=== PATIENT | male | born 1955 | race Caucasian/White ===

== ENCOUNTER 2019-04-13 11:32 | Inpatient (IN) ==
[2019-04-13] MEDS ORDERED: 0.9 % Sodium Chloride 1,000 ML IVC ONE (12:13)
[2019-04-13 12:27] LABS: Basophils % 0.3 %; Hematocrit 43.5 % (37.5-50.1); Hemoglobin 14.3 g/dL (12.9-16.9); Immature Granulocytes % 0.3 % (0-4); Lymphocytes # 1.1 K/mcL (0.6-4.6); Lymphocytes % 9.8 %; Mean Corpuscular HGB Conc 32.9 g/dL (31.6-35.5); Mean Corpuscular Hemoglobin 31.7 pg (28.0-33.3); Mean Corpuscular Volume 96.5 fL (83.0-100.0); Mean Platelet Volume 12.3 fL (9.4-12.4); Monocytes # 0.9 K/mcL (0.0-1.3); Neutrophils # 9.3 K/mcL (1.6-8.9); Platelet Count 176 K/mcL (140-400); Red Blood Count 4.51 M/mcL (4.19-5.50); Red Cell Distribution Width 14.6 % (11.5-14.5); Segmented Neutrophils % 81.6 %; White Blood Count 11.4 K/mcL (4.3-11.1)
[2019-04-13 12:43] LABS: INR 1.5; Prothrombin Time 16.8 Seconds (9.4-12.1)
[2019-04-13] MEDS ORDERED: Isovue-370 500 ML BOTTLE IVP ONE (12:56)
[2019-04-13] MEDS ORDERED: Furosemide 40 MG/4 ML VIAL IVP ONE (13:06)
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
[2019-04-13] MEDS ORDERED: 0.9 % Sodium Chloride 1,000 ML IVC SCH (13:15)
[2019-04-13 13:51] LABS: ABG Base Excess 1 mEq/L (-2 to 3); ABG HCO3 28 mEq/L (21-27); ABG Oxygen Saturation 96 % (95-98); ABG PCO2 53 mmHg (35-45); ABG PH 7.33 pH Units (7.32-7.45); ABG PO2 86 mmHg (85-104); ABG TCO2 30 mEq/L (20-26)
[2019-04-13 14:20] LABS: Alanine Aminotransferase 37 Units/L (7-52); Albumin 4.2 g/dL (3.5-5.7); Albumin/Globulin Ratio 1.4 (1.1-2.2); Alkaline Phosphatase 119 Units/L (34-104); Aspartate Amino Transferase 38 Units/L (13-39); BUN/Creatinine Ratio 38 (6-26); Bilirubin,Direct 0.5 mg/dL (0.0-0.2); Bilirubin,Indirect 1.2 mg/dL (0.0-1.2); Bilirubin,Total 1.7 mg/dL (0.3-1.0); Blood Urea Nitrogen 35 mg/dL (8-23); Calcium 9.6 mg/dL (8.6-10.3); Carbon Dioxide 29 mEq/L (23-29); Chloride 101 mEq/L (98-107); Globulin 2.9 g/dL (2.4-3.5); Glucose 167 mg/dL (70-105); Magnesium 2.1 mg/dL (1.6-2.6); Osmolality,Calculated 298 (280-300); Phosphorous 5.1 mg/dL (2.7-4.5); Potassium 4.8 mEq/L (3.5-5.1); Sodium 138 mEq/L (136-145); Total Protein 7.1 g/dL (6.4-8.9); eGFR For African Americans > 60 (> 60); eGFR For Non-African Americans > 60 (> 60)
[2019-04-13 14:31] LABS: Troponin I 0.03 ng/mL (< 0.04)
[2019-04-13 15:53] LABS: Bilirubin,Urine Negative (Negative); Blood,Urine Negative (Negative); Clarity,Urine Clear (Clear); Color,Urine Yellow (Yellow); Glucose,Urine (UA) Normal (Normal); Ketones,Urine Negative (Negative); Leukocyte Esterase,Urine Trace (Negative); Nitrite,Urine Negative (Negative); PH,Urine 5.5 pH Units (5.0-8.0); Protein,Urine 30 mg/dL (Neg-Trace); Specific Gravity,Urine 1.016 (1.010-1.025); Urobilinogen,Urine Normal (Normal)
[2019-04-13 15:55] LABS: Bacteria,Urine None Seen per hpf (None-Few); Hyaline Casts,Urine None Seen per lpf (None-Few); RBC,Urine 0-3 per hpf (0-3); Squamous Epithelial Cell,Urine Many per lpf (None-Few)
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
[2019-04-13] MEDS ORDERED: Naloxone 0.4 MG/ML INJ IVP PRN (17:02)
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
[2019-04-13] MEDS ORDERED: D5% in Water 1,000 ML IVC PRN (17:37)
[2019-04-13] MEDS ORDERED: *HR* Dextrose 50 % in Water (Syg) 50 ML SYRINGE IVP PRN (17:37)
[2019-04-13] MEDS ORDERED: Dextrose Gel 15 GM/37.5 ML TUBE PO PRN ×2 (17:37)
[2019-04-13 18:30] LABS: Estimated Average Glucose 174 mg/dl
[2019-04-13] MEDS ORDERED: Lactulose Oral Soln 20 GM/30 ML UDC PO ONE (20:24)
[2019-04-13] MEDS ORDERED: *HR* Metoprolol 5 MG/5 ML VIAL IVP PRN (20:24)
[2019-04-13] MEDS: Insulin LISPRO 300 UNITS/3 ML VIAL SQ SCH (20:27)
[2019-04-14 05:15] LABS: Basophils % 0.3 %; Eosinophils % 0.3 %; Hematocrit 44.2 % (37.5-50.1); Hemoglobin 14.2 g/dL (12.9-16.9); Immature Granulocytes % 0.4 % (0-4); Lymphocytes # 1.1 K/mcL (0.6-4.6); Lymphocytes % 10.9 %; Mean Corpuscular HGB Conc 32.1 g/dL (31.6-35.5); Mean Corpuscular Hemoglobin 31.8 pg (28.0-33.3); Mean Corpuscular Volume 98.9 fL (83.0-100.0); Monocytes % 10.2 %; Platelet Count 173 K/mcL (140-400); Red Blood Count 4.47 M/mcL (4.19-5.50); Red Cell Distribution Width 14.6 % (11.5-14.5); Segmented Neutrophils % 77.9 %; White Blood Count 10.2 K/mcL (4.3-11.1)
[2019-04-14 05:33] LABS: BUN/Creatinine Ratio 34 (6-26); Blood Urea Nitrogen 36 mg/dL (8-23); Calcium 9.1 mg/dL (8.6-10.3); Carbon Dioxide 31 mEq/L (23-29); Chloride 100 mEq/L (98-107); Glucose 153 mg/dL (70-105); Magnesium 2.2 mg/dL (1.6-2.6); Osmolality,Calculated 297 (280-300); Potassium 4.4 mEq/L (3.5-5.1); Sodium 138 mEq/L (136-145); eGFR For African Americans > 60 (> 60); eGFR For Non-African Americans > 60 (> 60)
[2019-04-14 05:35] LABS: Albumin 4.3 g/dL (3.5-5.7); Albumin/Globulin Ratio 1.5 (1.1-2.2); Bilirubin,Direct 0.5 mg/dL (0.0-0.2); Bilirubin,Indirect 0.8 mg/dL (0.0-1.2); Bilirubin,Total 1.3 mg/dL (0.3-1.0); Globulin 2.8 g/dL (2.4-3.5); Total Protein 7.1 g/dL (6.4-8.9)
[2019-04-14 08:26] LABS: Creatine Kinase 106 Units/L (30-223)
[2019-04-14] MEDS: Apixaban 5 MG TABLET PO SCH (08:48)
[2019-04-14] MEDS: Insulin LISPRO 300 UNITS/3 ML VIAL SQ SCH ×3 (08:48→17:50)
[2019-04-14] MEDS ORDERED: Furosemide 40 MG/4 ML VIAL IVP SCH (09:00)
[2019-04-14] MEDS: Lactulose Oral Soln 20 GM/30 ML UDC PO SCH ×2 (12:04→20:22)
--- NOTE | 2019-04-14 12:49 | Internal Med Progress Note ---
Hospitalist Progress Note - Encounter Date of Encounter: 04/14/19 Time of Encounter: 12:47 - Subjective Interval History: Mr Hernandez is still somewhat encephalopathic not able to fully participate in any meaningful conversation would often digress, today he stated that he is constipated and that lisinopril made him constipated. He stated his shortness of breath is much improved. He denies any history of alcoholism however he has been noted to have hyperammonemia. He denies any skin changes stated that he is always looked jalloh. GEN: Denies fever, chills or malaise HEENT: Denies headache blurriness, or dysphagia RESP: Denies SOB or cough CV: Denies chest pain or palpitations GI: Denies Nausea, vomiting, diarrhea or constipation Reviewed current in hospital medications with modifications see orders Reviewed Routine labs - Exam Vitals: Temp Pulse Resp BP Pulse Ox 98.0 F 80 16 108/73 96 04/14/19 11:41 04/14/19 11:41 04/14/19 11:41 04/14/19 11:41 04/14/19 11:41 Exam: GEN: NAD, A&O x 1 appears self only, not able to maintain meaningful conversation. No conversational dyspnea SKIN: [place], warm acyanotic not jaundice HEART: Irregularly irregular rate and rhythm no murmurs LUNGS: Slightly diminished but much improved from his exam no wheeze minima crackles, overall non labored ABDOMEN; obese Soft, non tender or distended, BS x 4 normactive. Healed multiple abdominal surgical scars EXT: No LE edema, Pedal pulses 1+, radial pulses 2+, no asterixis on exam PSYCH: Mood and affect is appropriate, however insight and judgment is questionable - Assessment and Plan (1) Hyperammonemia Current Visit: Yes Status: Acute Assessment and Plan: This likely the underlying etiology for him being encephalopathic, surrounding etiology remains unclear he does appear jalloh/ yellowish but with mild hyperbilirubinemia rest of his LFTs were unremarkable. Given his body habitus SOARES is a possibility. We will continue lactulose daily and trend ammonia level (2) Encephalopathy acute Current Visit: Yes Status: Acute Assessment and Plan: Appears to be metabolic from hepatic encephalopathic, he still remains encephalopathic and denies any alcoholic intake. Ammonia level remains elevated 59 yesterday was administered 30 g of lactulose repeat ammonia is 56 today continue lactulose daily we will trend ammonia levels. Baseline mental status is not known, suspect metabolic encephalopathy from his hypercapnia it appears he has chronic respiratory failure. Although ABG does reveal relatively mild hypercapnia, as such we will broaden the lab work up to include TSH, ammonia level and check a procalcitonin. His head CT was unremarkable. (3) Acute exacerbation of CHF (congestive heart failure) Current Visit: Yes Status: Acute Assessment and Plan: Despite being encephalopathic he did state that his breathing is much improved but could not elaborate, continue IV Lasix monitor strict I's and O's. Chest x- ray does reveal pulmonary vascular congestion, only urine output of 250ml we wi ll order a postvoid bladder scan (4) Afib Current Visit: Yes Status: Chronic Assessment and Plan: Continue apixaban, rate controlled on telemetry, appears he has chronic A. fib and upon review of his home meds is on apixaban although compliance is reasonable. There is no reason to attribute his dyspnea to pulmonary embolism- he is not tachycardic does not report any chest pain and claims his dyspnea improved after seen at the ED patient was administered 1 dose of 40 mg IV Lasix. Continue monitoring clinically correlate (5) Diabetes mellitus Current Visit: Yes Status: Chronic Assessment and Plan: Quite unlikely that his acute presentation is from DKA, blood glucose only 167 and UA negative for ketones. We will place on insulin per protocol obtain A1c 7.7 continue insulin (6) DVT prophylaxis Current Visit: Yes Status: Acute Assessment and Plan: on apixaban - Time Spent with Patient Total time spent is greater than 50% in coordination of care (as documented) at patient's floor/unit and/or counseling patient: Internal Medicine: Result - Labs CBC & Chem 7: 04/14/19 04:52 04/14/19 04:52 Labs: Short CBC 04/14/19 Range/Units 04:52 WBC 10.2 (4.3-11.1) K/mcL Hgb 14.2 (12.9-16.9) g/dL Hct 44.2 (37.5-50.1) % Plt Count 173 (140-400) K/mcL Neutrophils # 8.0 (1.6-8.9) K/mcL BMP 04/13/19 04/14/19 11:52 04:52 Sodium 138 138 Potassium 4.8 4.4 Chloride 101 100 Carbon Dioxide 29 31 H BUN 35 H 36 H Creatinine 0.93 1.06 Glucose 167 H 153 H Calcium 9.6 9.1 Cardiac Enzymes 04/13/19 Range/Units 11:52 Troponin I 0.03 (< 0.04) ng/mL Liver Function 04/13/19 04/14/19 Range/Units 11:52 04:52 Total Bilirubin 1.7 H 1.3 H (0.3-1.0) mg/dL Direct Bilirubin 0.5 H 0.5 H (0.0-0.2) mg/dL AST 38 31 (13-39) Units/L ALT 37 38 (7-52) Units/L Alkaline Phosphatase 119 H 143 H (34-104) Units/L Albumin 4.2 4.3 (3.5-5.7) g/dL Urine 04/13/19 Range/Units 15:10 Urine Color Yellow (Yellow) Urine Clarity Clear (Clear) Urine pH 5.5 (5.0-8.0) pH Units Ur Specific [place] 1.016 (1.010-1.025) Urine Protein 30 H (Neg-Trace) mg/dL Urine Glucose (UA) Normal (Normal) mg/dL - ABG Interpretation ABG results: ABG ABG pH 7.33 pH Units (7.32-7.45) 04/13/19 13:46 ABG pCO2 53 mmHg (35-45) H 04/13/19 13:46 ABG pO2 86 mmHg (85-104) 04/13/19 13:46 ABG O2 Saturation 96 % (95-98) 04/13/19 13:46 PT/INR, D-dimer PT 16.8 Seconds (9.4-12.1) H 04/13/19 11:52 - Impressions Impressions Chest X-Ray 04/13/19 12:15 IMPRESSION: Cardiomegaly. Pulmonary edema with bilateral pleural effusions. D/ / 04/13/2019 13:08:20 Ruddy Jacobsen MD / [email or web address] Interpreting Provider: Ruddy Jacobsen MD Head CT 04/13/19 12:53 IMPRESSION: No acute abnormality of the head. D/ / Anthony Martinez MD / Anthony Martinez MD Interpreting Provider: Anthony Martinez MD Abdomen/Pelvis CT 04/13/19 12:56 IMPRESSION: No convincing evidence for acute traumatic injury to the abdomen pelvis. Trace perihepatic and perisplenic free fluid. Small to moderate bilateral effusions and left basilar atelectasis. Colonic diverticulosis without acute diverticulitis. Small right paramedian anterior abdominal wall hernia containing a single loop of small bowel without evidence for obstruction. D/ / Diego Lagunas MD / Diego Lagunas MD Interpreting Provider: Diego Lagunas MD Consult Discharge Plan - Plan Referrals: NONE,PCP [Primary Care Provider] - (3) Acute exacerbation of CHF (congestive heart failure) Qualifiers: Heart failure type: unspecified Qualified Code(s): I50.9 - Heart failure, unspecified (4) Afib Qualifiers: Atrial fibrillation type: unspecified Qualified Code(s): I48.91 - Unspecified atrial fibrillation (5) Diabetes mellitus Qualifiers: Diabetes mellitus type: type 2 Diabetes mellitus manager long term care insulin use: without manager long term care use Diabetes mellitus complication status: without complication Qualified Code(s): E11.9 - Type 2 diabetes mellitus without complications
[2019-04-15] MEDS ORDERED: Temazepam 15 MG CAPSULE PO PRN (01:50)
[2019-04-15 04:50] LABS: Basophils % 0.3 %; Eosinophils % 0.1 %; Hematocrit 49.9 % (37.5-50.1); Hemoglobin 15.3 g/dL (12.9-16.9); Immature Granulocytes % 0.3 % (0-4); Lymphocytes # 1.5 K/mcL (0.6-4.6); Lymphocytes % 10.1 %; Mean Corpuscular HGB Conc 30.7 g/dL (31.6-35.5); Mean Platelet Volume 12.3 fL (9.4-12.4); Monocytes # 1.2 K/mcL (0.0-1.3); Monocytes % 8.2 %; Neutrophils # 12.3 K/mcL (1.6-8.9); Platelet Count 160 K/mcL (140-400); Red Blood Count 4.94 M/mcL (4.19-5.50); Red Cell Distribution Width 14.6 % (11.5-14.5); White Blood Count 15.2 K/mcL (4.3-11.1)
[2019-04-15] MEDS ORDERED: 0.9 % Sodium Chloride 1,000 ML ONE (05:14)
[2019-04-15] MEDS ORDERED: Artificial Tears SOLN 15 ML BOTTLE BOTH EYES PRN (05:31)
--- NOTE | 2019-04-15 05:52 | Event Note ---
Date of Encounter: 04/15/19 Time of Encounter: 04:58
[2019-04-15 06:20] LABS: Basophils # 0.1 K/mcL (0.0-0.2); Basophils % 0.4 %; Eosinophils % 0.1 %; Hematocrit 46.6 % (37.5-50.1); Hemoglobin 14.4 g/dL (12.9-16.9); Immature Granulocytes % 5.3 % (0-4); Lymphocytes # 1.7 K/mcL (0.6-4.6); Lymphocytes % 12.2 %; Mean Corpuscular HGB Conc 30.9 g/dL (31.6-35.5); Mean Corpuscular Hemoglobin 31.9 pg (28.0-33.3); Mean Corpuscular Volume 103.3 fL (83.0-100.0); Monocytes # 0.8 K/mcL (0.0-1.3); Monocytes % 5.8 %; Neutrophils # 10.8 K/mcL (1.6-8.9); Nucleated Red Blood Cells 0.2 /100 WBC (0); Platelet Count 175 K/mcL (140-400); Red Blood Count 4.51 M/mcL (4.19-5.50); Red Cell Distribution Width 14.6 % (11.5-14.5); Segmented Neutrophils % 76.2 %; White Blood Count 14.2 K/mcL (4.3-11.1)
[2019-04-15 06:25] LABS: ABG Base Excess -3 mEq/L (-2 to 3); ABG HCO3 28 mEq/L (21-27); ABG Oxygen Saturation 89 % (95-98); ABG PCO2 81 mmHg (35-45); ABG PH 7.15 pH Units (7.32-7.45); ABG PO2 76 mmHg (85-104); ABG TCO2 30 mEq/L (20-26); Blood Gas Modality AF; Blood Gas PEEP 5 cm H2O; Blood Gas VT 500 cc
--- NOTE | 2019-04-15 06:27 | Event Note ---
Date of Encounter: 04/15/19 Time of Encounter: 06:30 Rapid response was called on the patient at approximately 0500 hrs due to unresponsiveness. At the time of my assessment, the patient appeared cyanotic with unresponsive pupils. There were no peripheral pulses or auscultable cardiac sounds. Telemetry showed asystole. ACLS protocol was started immediately and he required 3 doses of epinephrine. ROSC was achieved after ~12 mins and he returned to his underlying Afib with RVR. He was transferred to the ICU where again he became bradycardic, not responding to 1 dose of atropine then subsequently went into PEA arrest. ROSC was achieved after 2 cycles of CPR. His MAPs have remained above 65mmHg since. Review of his telemetry shows that he was previously in Afib RVR through the night and with the nurse reporting he has been battling insomnia so he was given a 15mg dose of temazepam at 0215hrs. On his telemetry it is seen he became bradycardic around 0450hrs into the mid 30s before being found unresponsive by the RN. Will insert OG tube to low intermittent suction, obtain arterial blood gas, comprehensive labs and a chest x-ray in the interim. Fluid resuscitation in place. Currently not requiring vasopressors to maintain hemodynamics. Critical care consult placed. BALTAZAR RUBY.
[2019-04-15 06:28] LABS: INR 1.4; Prothrombin Time 16.3 Seconds (9.4-12.1)
[2019-04-15] MEDS ORDERED: 0.9 % Sodium Chloride 1,000 ML IVC SCH (06:30)
[2019-04-15 06:31] LABS: Activated Partial Thrombo Time 35.3 Seconds (26.0-36.0)
[2019-04-15 06:39] LABS: Platelet Estimate Normal (Normal)
[2019-04-15 06:47] LABS: Albumin 3.8 g/dL (3.5-5.7); Albumin/Globulin Ratio 1.5 (1.1-2.2); Alkaline Phosphatase 147 Units/L (34-104); BUN/Creatinine Ratio 24 (6-26); Bilirubin,Direct 0.8 mg/dL (0.0-0.2); Bilirubin,Indirect 1.2 mg/dL (0.0-1.2); Blood Urea Nitrogen 33 mg/dL (8-23); Calcium 8.4 mg/dL (8.6-10.3); Carbon Dioxide 26 mEq/L (23-29); Chloride 100 mEq/L (98-107); Globulin 2.6 g/dL (2.4-3.5); Glucose 62 mg/dL (70-105); Osmolality,Calculated 299 (280-300); Phosphorous 10.3 mg/dL (2.7-4.5); Potassium 3.9 mEq/L (3.5-5.1); Sodium 142 mEq/L (136-145); Total Protein 6.4 g/dL (6.4-8.9); Troponin I 0.09 ng/mL (< 0.04); eGFR For African Americans > 60 (> 60); eGFR For Non-African Americans 53 (> 60)
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
--- NOTE | 2019-04-15 07:36 | Internal Med Progress Note ---
Hospitalist Progress Note - Encounter Date of Encounter: 04/15/19 Time of Encounter: 07:31 - Subjective Interval History: Mr Hernandez became unresponsive sometime last night and a rapid response was called approximately 5:00 in the morning, according to event note he was cyanotic and unresponsive with no peripheral pulses appreciated. ACLS protocol was initiated he received 3 doses of epinephrine ROSC was achieved after 12 minutes and patient returned to atrial fibrillation with RVR. He was transferred to the ICU slightly bradycardic require 1 dose of Atropine did not respond went into PEA and ROSC was achieved two cycles of ACLS. It appears patient was ordered 15 mg dose of temazepam at about 2:15 am for his insomnia. He is currently intubated on no sedation minimally responsive to sternal rub. This morning labs phosphorous is now 10.3, it was 5.7 yesterday and his ammonia yesterday was 56, trended up to 175, and 281 while on lactulose 20 twice a day. of note patient had 3 bm yesterday - Exam Vitals: Temp Pulse Resp BP Pulse Ox 98 F 103 12 150/121 98 04/15/19 02:40 04/15/19 02:40 04/15/19 05:33 04/15/19 05:33 04/15/19 05:33 Exam: GEN: Intubated on the vent, on no sedation however are unresponsive to deep sternal rub SKIN: Pale but warm HEART: Irregularly irregular rate and rhythm LUNGS: Attenuated breath sounds ABDOMEN; Soft, non tender or distended, BS x 4 hypoactive, healed multiple abdominal scars noted EXT: Diffuse nonpitting LE edema, PSYCH: deferred - Assessment and Plan (1) Cardiac arrest Current Visit: Yes Status: Acute Assessment and Plan: s/p ACLS protocol like is secondary to electrolyte abnormalities hyperphosphatemia, hyperammonemia, respiratory arrest with likely decompensated liver. plan will be to transfer to [facility] (2) Shock liver Current Visit: Yes Status: Acute Assessment and Plan: likely due to cardiopulmonary arrest with underlying liver cirrhosis which was suspected to be AGRAWAL. Plan is to stabilize and transfer to [facility]. (3) Hyperphosphatemia Current Visit: Yes Status: Acute Assessment and Plan: phos was 5.1, 5.7 but today 10.3. Will start renvela and consult Nephrology, however he is being considered for transfer to tertiary center (4) Hyperammonemia Current Visit: Yes Status: Acute Assessment and Plan: ammonia [phone] while on lactulose 20mg bid. This likely the underlying etiology for him being encephalopathic, surrounding etiology remains unclear he does appear hyde/ yellowish but with mild hyperbilirubinemia rest of his LFTs were unremarkable. Given his body habitus AGRAWAL is a possibility. We will continue lactulose daily and trend ammonia level (5) Encephalopathy acute Current Visit: Yes Status: Acute Assessment and Plan: patient too the turn for the worse, as stated above. Appears to be metabolic from hepatic encephalopathic, he still remains enc ephalopathic and denies any alcoholic intake. Ammonia level remains elevated 59 yesterday was administered 30 g of lactulose repeat ammonia is 56 today continue lactulose daily we will trend ammonia levels. Met with daughter Jeanette yesterday. She does admit patient having Agrawal and not been alcoholic. She does reportedly been quite agitated lately and complains of insomnia. Discussed with patient's daughter that the insomnia is likely from his high ammonia levels which is typical for hepatic encephalopathy. Baseline mental status is not known, suspect metabolic encephalopathy from his h ypercapnia it appears he has chronic respiratory failure. Although ABG does reveal relatively mild hypercapnia, as such we will broaden the lab work up to include TSH, ammonia level and check a procalcitonin. His head CT was unremarkable. (6) Acute exacerbation of CHF (congestive heart failure) Current Visit: Yes Status: Acute Assessment and Plan: will dc lasix as afor mentioned. Despite being encephalopathic he did state that his breathing is much improved but could not elaborate, continue IV Lasix monitor strict I's and O's. Chest x- ray does reveal pulmonary vascular congestion, only urine output of 250ml we will order a postvoid bladder scan (7) Afib Current Visit: Yes Status: Chronic Assessment and Plan: now afib rvr. Continue apixaban, rate controlled on telemetry, appears he has chronic A. fib and upon review of his home meds is on apixaban although compliance is reasonable. There is no reason to attribute his dyspnea to pulmonary embolism- he is not tachycardic does not report any chest pain and claims his dyspnea improved after seen at the ED patient was administered 1 dose of 40 mg IV Lasix. Continue monitoring clinically correlate (8) Diabetes mellitus Current Visit: Yes Status: Chronic Assessment and Plan: Quite unlikely that his acute presentation is from DKA, blood glucose only 167 and UA negative for ketones. on insulin per protocol obtain A1c 7.7 (9) DVT prophylaxis Current Visit: Yes Status: Acute Assessment and Plan: on apixaban - Time Spent with Patient Total time spent is greater than 50% in coordination of care (as documented) at patient's floor/unit and/or counseling patient: Internal Medicine: Result - Labs CBC & Chem 7: 04/15/19 06:07 04/15/19 06:07 Labs: Short CBC 04/15/19 04/15/19 Range/Units 04:33 06:07 WBC 15.2 H 14.2 H (4.3-11.1) K/mcL Hgb 15.3 14.4 (12.9-16.9) g/dL Hct 49.9 46.6 (37.5-50.1) % Plt Count 160 175 (140-400) K/mcL Neutrophils # 12.3 H 10.8 H (1.6-8.9) K/mcL BMP 04/14/19 04/15/19 04:52 06:07 Sodium 138 142 Potassium 4.4 3.9 Chloride 100 100 Carbon Dioxide 31 H 26 BUN 36 H 33 H Creatinine 1.06 1.35 H Glucose 153 H 62 L Calcium 9.1 8.4 L Cardiac Enzymes 04/15/19 Range/Units 06:07 Troponin I 0.09 H* (< 0.04) ng/mL Liver Function 04/15/19 Range/Units 06:07 Total Bilirubin 2.0 H (0.3-1.0) mg/dL Direct Bilirubin 0.8 H (0.0-0.2) mg/dL Alkaline Phosphatase 147 H (34-104) Units/L Albumin 3.8 (3.5-5.7) g/dL - ABG Interpretation ABG results: ABG ABG pH 7.15 pH Units (7.32-7.45) L* 04/15/19 06:19 ABG pCO2 81 mmHg (35-45) H* 04/15/19 06:19 ABG pO2 76 mmHg (85-104) L 04/15/19 06:19 ABG O2 Saturation 89 % (95-98) L 04/15/19 06:19 PT/INR, D-dimer PT 16.3 Seconds (9.4-12.1) H 04/15/19 06:07 - Impressions Impressions Chest X-Ray 04/15/19 05:28 IMPRESSION: 1. Endotracheal tube tip is 4.3 cm above the dana. The enteric tube courses below the diaphragm the tip is excluded on this exam. 2. No significant interval change in bilateral pleural effusions. 3. Slightly increasing right basilar airspace opacity either atelectasis or pneumonia. D/ / Kirti Vidal MD / Kirti Vidal MD Interpreting Provider: Kirti Vidal MD Consult Discharge Plan - Plan Referrals: NONE,PCP [Primary Care Provider] - _ (6) Acute exacerbation of CHF (congestive heart failure) Qualifiers: Heart failure type: unspecified Qualified Code(s): I50.9 - Heart failure, unspecified (7) Afib Qualifiers: Atrial fibrillation type: unspecified Qualified Code(s): I48.91 - Unspecified atrial fibrillation (8) Diabetes mellitus Qualifiers: Diabetes mellitus type: type 2 Diabetes mellitus chcf insulin use: without chcf use Diabetes mellitus complication status: without complication Qualified Code(s): E11.9 - Type 2 diabetes mellitus without complications
[2019-04-15 07:51] LABS: Alanine Aminotransferase 1344 Units/L (7-52); Aspartate Amino Transferase 1275 Units/L (13-39)
[2019-04-15] MEDS ORDERED: Artificial Tears SOLN 15 ML BOTTLE BOTH EYES SCH (08:00)
[2019-04-15] MEDS: Apixaban 5 MG TABLET PO SCH (08:10)
[2019-04-15] MEDS: Lactulose Oral Soln 20 GM/30 ML UDC PO SCH (08:11)
[2019-04-15 08:12] LABS: ABG Base Excess 0 mEq/L (-2 to 3); ABG HCO3 27 mEq/L (21-27); ABG Oxygen Saturation 97 % (95-98); ABG PCO2 49 mmHg (35-45); ABG PH 7.34 pH Units (7.32-7.45); ABG PO2 92 mmHg (85-104); ABG TCO2 28 mEq/L (20-26); Blood Gas Modality PRVC; Blood Gas PEEP 5 cm H2O; Blood Gas VT 500 cc
[2019-04-15] MEDS ORDERED: Albumin 25% 25gram/100mL 25 GM/100 ML IV.SOLN IVC SCH (08:15)
[2019-04-15] MEDS ORDERED: amLODIPine 5 MG TABLET PO SCH (09:00)
[2019-04-15] MEDS ORDERED: Chlorhexidine Rinse 15 ML MOUTHWASH MM SCH (09:00)
[2019-04-15] MEDS ORDERED: D5% in Water 1,000 ML IVC PRN (09:26)
[2019-04-15] MEDS: Insulin LISPRO 300 UNITS/3 ML VIAL SQ SCH (09:26)
[2019-04-15] MEDS ORDERED: D5% in Water 1,000 ML IVC ONE (09:28)
[2019-04-15 09:33] VITALS: BP 75/43
--- NOTE | 2019-04-15 09:39 | Procedure Note ---
Date of procedure: 04/15/19 Was there an merchandising assistant present: No Estimated blood loss (cc): 1 Specimen: none Condition: critical Procedures: Internal Med - Central Line Placement Left IJ Consent Obtained: consent not possible/implied Time out performed: No (emergent) Patient placed on monitor/pulse ox: Yes prep: mask, gown, gloves, other Central line prep: Chlorhexidine scrub Local anesthesia used: Lidocaine 1% Amount of anesthesia used (mls): 5 Ultrasound used for placement: Yes Central line lumen inserted: triple Post Procedure: sutured in place, good blood return, all ports aspirated, flushed, capped, sterile dressing applied, dark venous blood, biodisk applied Post procedure x-ray: tip of catheter in good position, no pneumothorax seen Patient tolerated procedure: well Complications: none
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
[2019-04-15] MEDS ORDERED: Norepinephrine 4 MG in D5% in Water 250 ML IVC SCH (10:15)
--- NOTE | 2019-04-16 13:38 | Electrocardiograph Report ---
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
--- NOTE | 2019-04-16 14:09 | Electrocardiograph Report ---
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
== END 2019-04-15 09:50 | disposition other institution (70) | DRG 279 ==
LOC: 3BNU 11:32 → EMEROOARM 11:32 → SUATTDRO 16:01 → 3BNU 16:32 → ICNU 04-15 05:18
PROVIDERS: ADMIT Pharmacist; ATTEND Pharmacist